=== PATIENT | female | born 1990 ===

== ENCOUNTER 2018-03-07 11:08 | Emergency (ER) | payer SELFPAY ==
[2018-03-07] MEDS: TETRACAINE 0.5% 4 ML OPH LEFT EYE (13:27)
== END 2018-03-07 14:28 | disposition home or self-care (01) ==
LOC: FTE 11:08
DX: J32.9 Chronic sinusitis, unspecified (principal)
CPT/HCPCS: 70480; 81025; 99284-25